=== PATIENT | female | born 1980 | race Caucasian/White ===

== ENCOUNTER 2023-01-02 17:21 | Emergency (ER) | payer MEDICARE, OTHER ==
[~2023-01-02] VITALS: Ht 170.2 cm; Wt 72.9 kg
[2023-01-02 17:22] VITALS: BP 143/67
[2023-01-02] MEDS ORDERED: PROPARACAINE 0.5% OPHTH SOL 15ML XX ONE (17:45)
[2023-01-02] MEDS ORDERED: FLUORESCEIN OPHTH 1MG STRIP XX ONE (17:45)
[2023-01-02] MEDS ORDERED: CIPR0.3S6 OS (18:23)
== END 2023-01-02 18:53 | disposition home or self-care (01) ==
LOC: M ED 17:21
DX: S05.02XA Injury of conjunctiva and corneal abrasion without foreign body, left eye, initial encounter (principal); T15.02XA Foreign body in cornea, left eye, initial encounter; Z97.3 Presence of spectacles and contact lenses; Z88.1 Allergy status to other antibiotic agents

== ENCOUNTER 2024-07-15 20:07 | Emergency (ER) | payer MEDICARE, OTHER ==
[~2024-07-15] VITALS: Ht 170.2 cm; Wt 75.0 kg
[~2024-07-15 20:07] MED LIST: CIPR0.3S37 OS
[2024-07-15 20:12] VITALS: TEMP 99.4
[2024-07-15] MEDS: IBUPROFEN 600MG TAB PO ONE (22:31)
[2024-07-15 22:57] VITALS: BP 124/60; O2SAT 100
== END 2024-07-15 22:58 | disposition home or self-care (01) ==
LOC: M ED 20:07
DX: S90.31XA Contusion of right foot, initial encounter (principal); W20.8XXA Other cause of strike by thrown, projected or falling object, initial encounter; Y92.009 Unspecified place in unspecified non-institutional (private) residence as the place of occurrence of the external cause; Y93.9 Activity, unspecified; Y99.9 Unspecified external cause status; Z88.0 Allergy status to penicillin; Z88.1 Allergy status to other antibiotic agents